=== PATIENT | female | born 1995 | race Caucasian/White ===

== ENCOUNTER 2018-02-16 19:03 | Emergency (ER) | payer OTHER ==
[2018-02-16 21:04] VITALS: BP 113/88
== END 2018-02-16 21:04 | disposition home or self-care (01) ==
LOC: ED 19:03
DX: N39.0 Urinary tract infection, site not specified (principal)
CPT/HCPCS: J1885

== ENCOUNTER 2018-06-12 20:55 | Emergency (ER) | payer OTHER ==
[~2018-06-12] VITALS: Ht 152.4 cm; Wt 80.9 kg
[2018-06-12 21:30] VITALS: Ht 152.4 cm; Wt 80.9 kg
[2018-06-12 22:01] VITALS: BP 136/79
== END 2018-06-12 21:51 | disposition home or self-care (01) ==
LOC: ED 20:55
DX: N30.90 Cystitis, unspecified without hematuria (principal); I10 Essential (primary) hypertension